=== PATIENT | male | born 1990 | race Caucasian/White ===

== ENCOUNTER 2021-12-30 13:30 | Emergency (ER) | payer SELFPAY ==
[2021-12-30 14:36] VITALS: BP 157/97; PULSE 61; RESP 18; TEMP 36.8; O2SAT 99
--- NOTE | 2021-12-30 14:43 | XR_ITS ---
WS: [id number] Exam: XR lumbar spine 2-3V* [id number] Date/Time of Exam: 12/30/2021 2:45 PM Reason For Exam: back pain No fracture or dislocation. Mild degenerative disc narrowing from L3 to S1. Spondylosis of L3, L4 and L5. Laminectomy defects at L4-5 and L5-S1. Remaining posterior elements are intact. XR/XR lumbar spine 2-3V* [id number] IMPRESSION: 1. No fracture or malalignment. 2. Degenerative disc changes and spondylosis from L3 to S1. Postoperative irby es as noted above.
[2021-12-30] MEDS: ketorolac 60 mg/2 mL INJ IM (14:50)
--- NOTE | 2021-12-30 15:28 | ED_ITS ---
HPI - Back Pain/Injury General: Chief Complaint: Back Pain/Injury Stated Complaint: neck/back pain Time Seen by Provider: 12/30/21 14:25 History of Present Illness: Patient is in today for low back pain. He reports that yesterday morning he was pushing a heavy cart at work and immediately felt some low back pain. He reports that this has since traveled to his entire back. It is worse with movement or bending. He reports it is also worse with just sitting still for too long. He denies any fever, chills, nausea, vomiting. He denies any urinary symptoms. He denies any saddle anesthesia or loss of bowel or bladder continence. Associated symptoms: Deny abdominal pain, chills, dysuria, fever(s), nausea, urinary urgency or vomiting Review of Systems Const: Denies: fever(s) or chills Card: Denies: chest pain or palpitations Resp: Denies: dyspnea, productive cough or non-productive cough GI: Denies: abdominal pain, nausea or vomiting : Denies: flank pain, difficulty urinating, dysuria, urinary frequency, urinary urgency or urinary hesitancy Musc: Reports: back pain Physical Exam Const: COMMON NORMALS: no acute distress, patient oriented x3 and alert Resp: COMMON NORMALS: normal respiratory effort, No use of accessory muscles and clear to auscultation bilaterally AUSCULTATION: clear to auscultation bilaterally Cardio: COMMON NORMALS: regular rate, regular rhythm, S1 normal heart sound present and S2 normal heart sound present RATE: regular rate RHYTHM: regular rhythm HEART SOUNDS: S1 normal heart sound present and S2 normal heart sound present Back/Pelvis: OTHER: Tenderness to palpation lumbar paraspinal musculature bilateral. No other tenderness to palpation/vertebral point tenderness to the lumbar or thoracic spine on examination. Denies saddle anesthesia, loss of bowel or bladder continence. Patient is walking with a stiff gait and moving with a stiff gait. Neuro: COMMON NORMALS: patient oriented x3 SENSORIUM/ORIENTATION: Yes alert Course Vital Signs: Vital signs: Vital Signs Temperature 98.2 F 12/30/21 14:36 Pulse Rate 61 12/30/21 14:36 Respiratory Rate 18 12/30/21 14:36 Blood Pressure 157/97 12/30/21 14:36 Pulse Oximetry 99 12/30/21 14:36 Oxygen Delivery Me thod 12/30/21 14:36 MDM - Back Pain/Injury Medical Decision Making X-ray done lumbar spine shows no acute fracture or abnormalities. Advised patient that this is likely of lumbar muscle strain with muscle spasming. Educated patient about conservative treatments at home including alternating ice and warm moist compresses, Tylenol Motrin alternating for discomfort, follow-up in the ED as needed for new or worsening symptoms. Patient is given a shot of Toradol and also prescribed muscle relaxants for home use. Educated him about possible benefits and side effects of medications provided today. Advised him to follow-up with primary care provider. Return to the ER as needed for new or worsening symptoms. Labs Radiology Impressions Lumbar Spine X-Ray 12/30/21 14:43 IMPRESSION: 1. No fracture or malalignment. 2. Degenerative disc changes and spondylosis from L3 to S1. Postoperative changes as noted above. Discharge Plan Discharge Patient Disposition: Home Clinical Impression: Strain of lumbar region, Muscle spasm Condition: Stable Prescriptions: New cyclobenzaprine 10 mg tablet 10 mg PO TID PRN (Reason: muscle spasm) Qty: 10 0RF Discharge Orders: Discharge ED (Routine); Ordered 12/30/21 Ordered By: Charmaine Plata Discharge Diet: Usual diet Discharge Activity: Limit activity as instructed Patient Instructions: Low Back Strain (ED) Activity Restrictions/Additional Instructions: No more ibuprofen for at least 8 hours after receiving Toradol. You may use muscle relaxant as directed as needed for pain. Do not drive after taking muscle relaxant. Do not take any other medications or substances that make you sleepy while taking muscle relaxant. No lifting x3 days. Warm moist compresses to the area. Follow-up with primary care provider as needed. Return to the ER for new or worsening symptoms. 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
== END 2021-12-30 15:52 | disposition home or self-care (01) ==
PROVIDERS: Emergency Provider Nurse Practitioner Family
DX: S39.012A Strain of muscle, fascia and tendon of lower back, initial encounter (principal); M62.838 Other muscle spasm; X50.9XXA Other and unspecified overexertion or strenuous movements or postures, initial encounter
CPT/HCPCS: 72100; 96372; 99283; J1885